=== PATIENT | female | born 1960 | race Caucasian/White ===

== ENCOUNTER 2016-11-20 08:40 | Day surgery (SDC) | payer OTHER ==
[~2016-11-20 08:40] MED LIST: ALENDRONATE SOD35 M1 PO; CIPRO500 MG; ESTRACE0.5 MG; ESTRADIOL2 M1 PO; FLAGYL500 MG; FLEXERIL10 MG PO; H; HYDROCODON-ACE1 EA17 PO; LEVOTHYROXINE100 MC1 PO; LEXAPRO10 MG; MOTRIN; MOTRIN600 MG PO; REQUIP1 MG; ROPINIROLE HCL1 M1 PO; SOMA350 M1 PO; VICODIN 5/500 T1 TAB PO; VITAMIN D50000 UNI2 PO; WELLBUTRIN PO; XANAX0.5 M1 PO
[2016-11-20 09:49] LABS: BASO % 0.8 % (0-2); EOS % 3.3 % (0-7); EOSINOPHIL ABSOLUTE COUNT 0.2 tho/cmm (0.0-0.7); HGB-HEMOGLOBIN 13.5 gm/dl (12.0-15.5); IMMATURE GRANULOCYTES ABSOLUTE 0.01 tho/cmm (0-0.03); IMMATURE GRANULOCYTES PERCENT 0.2 % (0-0.3); LYMPH % 37.3 % (20-45); LYMPH ABSOLUTE COUNT 1.9 tho/cmm (0.8-4.5); MCH (MEAN CORPUSCULAR HGB) 32.5 pg (28.0-32.0); MCHC MEAN CORPUSCULAR HGB CONC 32.9 % (32.0-36.0); MCV (MEAN CELL VOLUME) 98.8 fl (82.0-96.0); MEAN PLATELET VOLUME 11.6 cmc (9.4-12.4); MONO % 7.5 % (0-12); MONOCYTE ABSOLUTE COUNT 0.4 tho/cmm (0.0-1.2); NEUTROPHIL ABSOLUTE COUNT 2.7 tho/cmm (1.6-8.0); NEUTROPHIL-AUTOMATED 2.7 tho/cmm (1.6-8.0); NEUTROPHILS % 50.9 % (40-80); PLATELET COUNT 253 tho/cmm (150-450); RED BLOOD COUNT 4.15 mil/cmm (4.00-5.20); RED CELL DISTRIBUTION WIDTH 13.5 % (12.4-16.4); WHITE BLOOD COUNT 5.2 tho/cmm (4.0-10.0)
== END 2016-11-20 11:20 ==
LOC: SRG 08:40 → SHSC 08:43
PROVIDERS: Specialist
PROC: 0JBL0ZZ Excision of Right Upper Leg Subcutaneous Tissue and Fascia, Open Approach (ICD-10-PCS; principal; 2016-11-20)
DX: R22.41 Localized swelling, mass and lump, right lower limb (principal); F41.9 Anxiety disorder, unspecified; K90.0 Celiac disease; G89.29 Other chronic pain; J44.9 Chronic obstructive pulmonary disease, unspecified; E78.5 Hyperlipidemia, unspecified; E03.9 Hypothyroidism, unspecified; G47.00 Insomnia, unspecified; M19.90 Unspecified osteoarthritis, unspecified site; F32.9 Major depressive disorder, single episode, unspecified; F17.200 Nicotine dependence, unspecified, uncomplicated; Z79.83 Long term (current) use of bisphosphonates; Z79.899 Other long term (current) drug therapy; Z88.0 Allergy status to penicillin; Z90.710 Acquired absence of both cervix and uterus; Z98.890 Other specified postprocedural states